=== PATIENT | female | born 1995 | race Caucasian/White ===

== ENCOUNTER 2017-02-25 13:53 | Emergency (ER) | payer OTHER ==
[~2017-02-25] VITALS: Ht 160 cm; Wt 54.5 kg
[2017-02-25 13:57] VITALS: BP 114/75; PULSE 88; RESP 14; O2SAT 99
--- NOTE | 2017-02-25 14:52 | ED.REPORT ---
HPI-Abd Pain F Under 40 Date of Service Feb 25, 2017 ED Provider: King Carlos MD The patient is a healthy G0 21 yo female who presents to the ER for intermittent periumbilical abdominal pain for about 2 years. She reports intermittent sharp pain under her belly button that feels like "someone stabs me with a knife." She has to double over when the pain hits. The stabbing pain often lasts about a few second then resolves spontaneously with rest. However, the patient feels sore for the rest of the day. The abdominal pain has been getting worse and more frequently. She used to get the abdominal pain 1x-2x/year , but it now turns into 1-2x/month. The most recent episode was prior to arrival today. The pain does not radiate anywhere. Patient denies other associated symptoms, including nausea, vomiting, dysuria, constipation, diarrhea , fever, chills, or weight loss. She denies any association with her menstrual cycle, exercise, or food. Patient reports regular menses with occasional cramping. LMP was a month ago. She denies STD history. She is not on OCPs and is using condoms for contraception. No family history of IBD. No PCP. Nursing Notes Stated Complaint: SEVERE ABDOMINAL PAIN Chief Complaint: Female Abdominal Pain Nursing Notes Reviewed: Yes Allergies: Coded Allergies: No Known Allergies (Unverified , 02/25/17) General Time Seen by MD: 14:10 Chief Complaint Abdominal pain Hx Obtained From: Patient, Spouse Arrived By: Walk-in Sudden in Onset?: Yes Onset Occurred: More than a week ago... (>6 months) Symptom Duration: Intermittent Progression since Onset: Unchanged, Gradually worsening Location: : Periumbilical Quality: Sharp, Stabbing Radiation: : Does not radiate Severity: Current: No pain currently Severity: Maximum: Severe Associated with: Denies: Anorexia, Back pain, Chills, Constipation, Diarrhea, Dysuria, Fever, Hematemesis, Hematochezia, Hematuria, Melena, Nausea, Shortness of breath, Urinary frequency, Urinary retention, Urinary tract symptoms, Vaginal discharge, Vomiting Pertinent Negative: Pt denies other symptoms Relieved by: Remaining still Pertinent Negative: Exacerbated by nothing Recent Healthcare: No recent doctor visit, No recent hospitalization Similar Sx Previous: Yes Risk Factors Ectopic Risk Stratification No risk factors Past Medical History Past Medical History None Past Surgical History None Family History Maternal grandmother with colon cancer. Paternal grandfather with heart disease Smoking History Never Smoker Social History Alcohol Use: "Social" Drug Use: Denies drug use Other Social History: Good social support, Ambulatory Status Independent Review of Systems Basic Review of Systems Eyes: Vision NL, No discharge ENT: Hearing NL, No pain, No nasal congestion, No pharyngeal pain Hematologic: No bleeding, No bruising Endocrine: No cold intolerance, No heat intolerance, No weight gain, No weight loss Skin: No bruising, No rash, No itch Allergy / Immune: No allergy Psychiatric: Normal thought content Constitutional: Denies: Chills, Fatigue, Fever, Recent wt loss, Weakness - generalized Respiratory: Denies: Dyspnea on exertion, Non-productive cough, Parox nocturnal dyspnea, Wheezing Cardiovascular: Denies: Chest pain, Edema, Orthopnea, Palpitations GI: Reports: Abdominal pain, Denies: Anorexia, Constipation, Diarrhea, Dysphagia, Hematemesis, Hematochezia, Nausea, Vomiting Female: Denies: Dysuria, Flank pain, Pelvic pain, Urinary frequency, Urinary urgency, Urination decreased, Urination increased Musculoskeletal: Denies: Back pain, Extremity pain, Extremity swelling, Lumbar pain, Neck pain Complete sys rev & neg: except as marked. Physical Exam Initial Vital Signs Vital Signs (First) Date Time Temp Pulse Resp B/P Pulse Ox O2 Delivery O2 Flow Rate FiO2 02/25/17 13:57 37.0 88 14 114/75 99 02/25/17 16:11 Room Air Initial VS: Reviewed, Vital signs normal Head / Eyes: Atraumatic, Normocephalic, PERRL ENT: Mucous membranes moist, Conjunctiva normal, No scleral icterus Neck: Supple, Non-tender, Full range of motion Lymphatic: No lymphadenopathy Extremities: Vascular intact, Neuro intact, No swelling, No tenderness Skin: Warm, Dry, No cyanosis Neurologic: Alert, Oriented, Nonfocal Psychiatric: Mood/affect normal, Behavior normal, Normal thought content General/Constitutional: Awake, Alert, No acute distress, Well appearing, Well developed, Well hydrated, Well nourished, Cooperative, Not toxic appearing Respiratory / Chest: Atraumatic, Breath sounds NL, Breath sounds = bilat, No respiratory distress, No rales, No rhonchi, No wheezing Cardiovascular: Heart rate NL, Regular rhythm, Heart sounds NL, No gallop, No murmurs Abdomen: Atraumatic, Soft, Non-tender, McBurney's non-tender, No guarding, No rebound, BS normoactive, No distention, No hernia, No palpable mass Back: Atraumatic, Inspection NL, Full range of motion, Non-tender, No CVA tenderness Psychiatric: Affect NL, Mood NL, Not suicidal, Not homicidal, Judgment/insight NL, Thought content NL Interpretation & Diagnostics Lab Results Interpretation Result Diagram: 02/25/17 1500 02/25/17 1500 Test 02/25/17 14:25 02/25/17 15:00 Urine Color Yellow (YELLOW) Urine Appearance Clear (CLEAR,HAZY) Urine pH 5.0 (5.0-8.0) Urine Specific [place] 1.010 (1.003-1.035) Urine Protein Negativemg/dL (NEG,TRACE) Urine Glucose (UA) Negativemg/dL (NEGATIVE) Urine Ketones Negativemg/dL (NEGATIVE) Urine Occult Blood Negative (NEGATIVE) Urine Nitrite Negative (NEGATIVE) Urine Bilirubin Negative (NEGATIVE) Urine Urobilinogen Normalmg/dL (NORMAL) Urine Leukocyte Esterase Negative (NEGATIVE) Urine RBC 0-2/hpf (0-2) Urine WBC 0-5/hpf (0-5) Urine Epithelial Cells Few/hpf (NONE-MOD) Urine Crystals None seen (NONE SEEN) Urine Bacteria Few/hpf (NONE-FEW) Urine Hyaline Casts None/lpf (NONE) Urine Granular Casts None seen (NONE SEEN) Urine Waxy Casts None seen (NONE SEEN) Urine Red Blood Cell Casts None seen (NONE SEEN) Urine White Blood Cell Casts None seen (NONE SEEN) Urine Mucus None seen (None Seen) Urine Trichomonas None seen (NONE SEEN) Urine Yeast None (NONE SEEN) Urinalysis Comment None Urine Culture Reflexed Not indicated Hold Urine Received (Received) White Blood Count 12.8th/mm3 (3.8-10.1) Red Blood Count 4.01mil/mm3 (3.90-5.20) Hemoglobin 12.0g/dL (12.0-15.6) Hematocrit 36.2% (35.0-46.0) Mean Corpuscular Volume 90.3fL (81-100) Mean Corpuscular Hemoglobin 29.9pg (27.0-35.0) Mean Corpuscular Hemoglobin Concent 33.1% (32.0-37.0) Red Cell Distribution Width 15.1% (12.3-15.4) Platelet Count 161bil/L (150-400) Neutrophils (%) (Auto) 84.5% (40-74) Lymphocytes (%) (Auto) 6.4% (14-46) Monocytes (%) (Auto) 7.8% (4-12) Eosinophils (%) (Auto) 0.2% (0-5) Basophils (%) (Auto) 0.2% (0-3) Sodium Level 129mEq/L (134-144) Potassium Level 3.6mEq/L (3.5-5.2) Chloride Level 87mEq/L (97-108) Carbon Dioxide Level 30mmol/L (18-29) Blood Urea Nitrogen 50mg/dL (6-20) Creatinine 1.82mg/dL (0.57-1.00) Estimat Glomerular Filtration Rate 50mL/min (>59) Glucose Level 126mg/dL (60-99) Calcium Level 8.7mg/dL (8.5-10.1) Total Bilirubin 1.0mg/dL (0.0-1.2) Aspartate Amino Transf (AST/SGOT) 21U/L (0-50) Alanine Aminotransferase (ALT/SGPT) 18U/L (0-32) Alkaline Phosphatase 75U/L (25-150) Total Protein 5.7g/dL (6.4-8.4) Albumin 3.0g/dL (3.4-5.0) Lipase 46U/L (13-60) Human Chorionic Gonadotropin, Qual Negative (Negative) Lab Results Interpretation: Mild leukocytosis with left shift Elevated BUN and Cr UA negative US Renal/Urinary Tract IMPRESSION: 1. No evidence of hydronephrosis. Dictated by: Jim Corona M.D. on 02/25/2017 at 17:35 Approved by: Jim Corona M.D. on 02/25/2017 at 17:37 Re-Eval/Medical Decision Med Decision/Clinical Course A healthy 21 yo female who presents to the ER for intermittent periumbilical abdominal pain for about 2 years but got worse in the last 2 months. Patient reports the abdominal pain is nonradiating and sharp, but only lasts a few second before it resolves spontaneously. However, it is usually severe enough to double her over. She denies any association with menstrual cycle or food. No other associated symptoms. She does not take any medication currently. She does not have a PCP and has not had any work up in the past. Her exam is completely benign as well. Initially, we suspected that her abdominal pain is likely due to menstrual cramps, constipation, IBS, or functional abdominal pain. There is no symptoms or signs of life threatening conditions such as appendicitis, cholecystitis, bowel obstruction, ectopic , intestinal performation/obstruction, etc. However, her labs show significantly elevated BUN and Cr, which is concerning for unknown renal pathology. Her WBC is also mildly elevated, but patient's vital signs are stable and the rest of her labs are normal. Patient was referred to nephrology and will call their office tomorrow for an appointment. She should also get a repeat labs with CBC and BMP to monitor her WBC and renal function. She is advised to avoid NSAIDs and other medications until she is told otherwise by her PCP/nephrology. Patient verbalized understanding and was discharged in stable condition. Source of Hx: Family Consultation : Referral / Consult Name: Daryl Gallegos DO Consulted With: Nephrology Requested Call at: 16:01 Call Returned at: 16:05 Polysomnographic Tech: Will see patient, Will see in office Note: Case reviewed with Dr. Gallegos, who recommended discharge and follow up with him or Dr. Gee as outpatient. Counseled Regarding: Diagnosis, Lab results, Need for follow-up, When/why to return to ED Discharge & Departure Primary Impression: Abnormal renal function Additional Impression: Abdominal pain Abdominal location: periumbilical Qualified Code: R10.33 - Periumbilical pain Disposition: Home Discharge Condition All VS Reviewed: Yes Condition: Stable Patient Instructions: Acute Kidney Injury (GEN) Additional Instructions: We are not sure the exact cause of your abdominal pain. However, your labs show elevated kidney function for unknown reason. We have consulted Dr. Gallegos, a hazardous waste material technician, and he recommended that you follow up with either him or Dr. Gee next week. Please call their office tomorrow to make an appointment. Your white count is also a little elevated, but this could be a stress reaction. The rest of your labs are not concerning. Your kidney ultrasound is also normal. You appear well and therefore, there is no indication to admit you to the hospital. You need to repeat the blood test to monitor your white blood count and kidney function in a couple days. This can be ordered by the hazardous waste material technician or the primary care doctor so that they can follow up on the results. In the mean time, make sure to keep yourself hydrated with plenty of fluid. Avoid NSAIDs use. You should also establish care with a primary care provider. You can call the residency clinic to make an appointment. If you abdominal pain gets worse or if you develop fever, chills, nausea, vomiting, or headache, please return to the ER. Referrals: Daryl Gallegos DO 1 Week [facility] EDSupervising Provider for APC: King Carlos MD Attending Statment I saw this patient in conjunction with the above-named resident. I was present for all bhatt elements of history taking, examination and treatment. I agree with the workup, plan and disposition. King Carlos MD copies to: Daryl Gallegos DO; [facility] Vinny Valentine DO Feb 25, 2017 14:52 King Carlos MD Feb 25, 2017 18:10
[2017-02-25 15:26] LABS: BASOPHILS % (AUTO) 0.2 % (0-3); EOSINOPHILS % (AUTO) 0.2 % (0-5); MONOCYTES % (AUTO) 7.8 % (4-12); Mean Corpuscular Hemoglobin 29.9 pg (27.0-35.0); Mean Corpuscular Volume 90.3 fL (81-100); NEUTROPHILS % (AUTO) 84.5 % (40-74); Platelet Count 161 bil/L (150-400)
[2017-02-25] MEDS ORDERED: 0.9% Sodium Chloride 1,000 ML IV ONE (16:10)
[2017-02-25 16:11] VITALS: BP 106/65; PULSE 76; RESP 16; O2SAT 100
[2017-02-25 16:45] LABS: APPEARANCE,URINE CLEAR (CLEAR,HAZY); COLOR,URINE YELLOW (YELLOW)
[2017-02-25 16:46] LABS: OCCULT BLOOD,URINE NEGATIVE (NEGATIVE); UROBILINOGEN,URINE NORMAL (NORMAL)
[2017-02-25 17:29] VITALS: BP 100/64; PULSE 89; RESP 18; O2SAT 100
--- NOTE | 2017-02-25 17:39 | DRSVH ---
PROCEDURE: US RENAL SONOGRAM INDICATIONS: abnormal renal function TECHNIQUE: Real-time scanning was performed of the kidneys and bladder, with image documentation. COMPARISON: None. FINDINGS: Kidneys: Right kidney measures 11.3 cm long; left kidney measures 10.9 cm long. Right renal cortica l thickness is 1.2 cm; left renal cortical thickness is 1.6 cm. Renal cortical echotexture is normal . No hydronephrosis. Bladder: Pre-void bladder volume is 83 mL. Post-void residual is 12 mL. Pre-void images demonstrat e no intraluminal masses or stones. On pre-void images, bilateral ureteral jets are noted with color Doppler interrogation. Miscellaneous: No free pelvic fluid. IMPRESSION: 1. No evidence of hydronephrosis. Dictated by: Jim Corona M.D. on 02/25/2017 at 17:35 Approved by: Jim Corona M.D. on 02/25/2017 at 17:37
== END 2017-02-25 17:30 | disposition home or self-care (01) ==
LOC: SED 13:53
DX: R94.4 Abnormal results of kidney function studies (principal); R10.33 Periumbilical pain
CPT/HCPCS: 36415; 76770; 80053; 81000; 81025; 83690; 84703; 85025; 96360; 99285; J7030